=== PATIENT | male | born 1945 ===

== ENCOUNTER 2016-12-10 07:08 | Day surgery (SDC) | payer MEDICARE ==
[2016-12-10] MEDS ORDERED: Lactated Ringer's 500 ML IV ONE (07:37)
[2016-12-10] MEDS ORDERED: Propofol 10 mg/ml Inj (20 ML) ONE ×2 (08:04→09:12)
[2016-12-10 09:20] VITALS: TEMP 97.3
[2016-12-10 09:37] VITALS: BP 130/71; PULSE 71; RESP 18; O2SAT 96
== END 2016-12-10 10:07 | disposition home or self-care (01) ==
LOC: H.ENDO 07:08
PROVIDERS: ATTEND Internal Medicine Gastroenterology
DX: Z12.11 Encounter for screening for malignant neoplasm of colon (principal); K64.8 Other hemorrhoids; I10 Essential (primary) hypertension; E66.9 Obesity, unspecified; G47.33 Obstructive sleep apnea (adult) (pediatric)
CPT/HCPCS: 45378; J2001; J2704; J3010; J7120